=== PATIENT | female | born 1945 | race Caucasian/White ===

== ENCOUNTER 2020-05-17 08:16 | Outpatient (CLI) | payer MEDICARE, OTHER, SELFPAY ==
--- NOTE | 2020-05-17 08:30 | FL_ITS ---
WS: [id number] DOUBLE CONTRAST UPPER GI EXAMINATION HISTORY: R13.10 - Dysphagia, unspecified COMPARISON: None available. FLUOROSCOPY TIME: 1.7 minutes. Barium tablet became briefly lodged in the cervical esophagus. The tablet then traveled through the e sophagus with no difficulty. No esophageal stricture was evident. No mass or mucosal abnormality. There is very minimal encroachme nt upon the posterior cervical esophagus at the C5-6 level due to osteophytes. No hiatal hernia. No gastroesophageal reflux Duodenal bulb was normal. No stomach abnormality. FL/FL upper GI w air* [id number] IMPRESSION: 1. Minimal encroachment upon the posterior cervical esophagus by osteophytes a t C5 and C6. Minimal delay in transit of the barium tablet. 2. Mild delayed emptying of esophagus. No hernia or reflux is demonstrated.
== END 2020-05-17 08:17 | disposition home or self-care (01) ==
LOC: RADWPI 08:23
PROVIDERS: PCP Family Medicine; Visit Provider Surgery
DX: R13.10 Dysphagia, unspecified (principal); M25.78 Osteophyte, vertebrae
CPT/HCPCS: 74246